=== PATIENT | female | born 2000 | race Caucasian/White ===

== ENCOUNTER 2020-06-12 00:08 | Emergency (ER) | payer OTHER ==
[2020-06-12] MEDS ORDERED: FLUCONAZOLE 100 MG TABLET PO STA (01:35)
--- NOTE | 2020-06-12 01:37 | ED Physician Documentation ---
History of Present Illness - Stated complaint Stated Complaint: FEMALE - Chief complaint Chief Complaint: General - History obtained from History obtained from: Patient - History of Present Illness Timing: Other (4 months) - Additonal information Additional information: 20-year-old female who has developed itching to the anus about 4 months ago. She has tried some Preparation H and when this did not seem to help much she went into medical and they told her to stop using that and to use some zinc oxide with some moisture that was seen there. She has not had relief with that. She is come in now for further evaluation. She indicates itching is sometimes so severe she is not able to sleep at night. Review of Systems Constitutional: denies: Fever Eyes: denies: Decreased vision Ears: denies: Ear pain Throat: denies: Sore throat Cardiac: denies: Palpitations Respiratory: denies: Cough GI: reports: Other (itching to the rectum). denies: Vomiting : denies: Dysuria, Frequency Skin: denies: Rash, Lesions PD PAST MEDICAL HISTORY - Past Medical History Past Medical History: Yes Derm: Eczema - Past Surgical History Past Surgical History: No - Present Medications Home Medications: Ambulatory Orders Medication Instructions Recorded Confirmed Albendazole [Albenza] 400 mg PO DAILY #6 tablet 06/12/20 - Allergies Allergies/Adverse Reactions: Allergies Allergy/AdvReac Type Severity Reaction Status Date / Time No Known Drug Allergies Allergy Verified 06/12/20 01:36 - Social History Does the pt smoke?: No Smoking Status: Never smoker Does the pt drink ETOH?: No Does the pt have substance abuse?: No - Immunizations Immunizations are current?: Yes - POLST Patient has POLST: No PD ED PE NORMAL - Vitals Vital signs reviewed: Yes (normal ) - General General: Alert and oriented X 3, No acute distress, Well developed/nourished - HEENT HEENT: Atraumatic, PERRL, EOMI - Respiratory Respiratory: No respiratory distress - Rectal Rectal: Other (No external or internal hemorrhoids. Normal appearing anus with normal tone. mild erythema into the gluteal fold. ) - Derm Derm: Normal color, Warm and dry, No rash - Extremities Extremities: No deformity, No edema - Neuro Neuro: Alert and oriented X 3, communication professor 2-12 intact, No motor deficit, No sensory deficit, Normal speech Eye Opening: Spontaneous Motor: Obeys Commands Verbal: Oriented GCS Score: 15 - Psych Psych: Normal mood, Normal affect Results - Vitals Vitals: Vital Signs - 24 hr 06/12/20 06/12/20 00:12 00:16 Temperature 37.4 C 37.4 C Heart Rate 89 89 Respiratory 16 16 Rate Blood Pressure 129/77 129/77 O2 Saturation 99 99 Oxygen O2 Source Room air PD MEDICAL DECISION MAKING - ED course Complexity details: considered differential, d/w patient ED course: 20-year-old female with itching to the anus has a normal-appearing anus there is maybe a little bit of erythema extending up the crack and she is treated empirically here in the emergency department with 150 mg of Diflucan I have encouraged patient to use cortisone on a regular basis for relief of the itching. In addition I have provided a prescription for albendazole and asked the patient to wait 1 week with the conservative treatment she is using now if she does not have relief of that to take the benzo. Departure - Departure Disposition: 01 Home, Self Care Clinical Impression: Pruritus ani Condition: Stable Instructions: ED Pruritus Ani Anal Itching Follow-Up: MATEO Massey [Provider Group] Prescriptions: Albendazole [Albenza] 400 mg PO DAILY #6 tablet Comments: Pruritus ani can be a significant irritation and you will always be able to get some relief with the use of [id number] hydrocortisone. This can be applied twoce daily if needed but should not be used continuously twice per day. If needed you could use this continuously 2-3 times per week. Today we have given you a dose of Diflucan which will eliminate yeast. If you have resolution of your symptoms this week this is likely been the cause. You may need this medication again at some point. In addition I have provided a prescription for albendazole which is for pinworms. My recommendation is to take this medication if you do not have resolution of your symptoms from the Diflucan. The timing of this would be may be a week from now and you will need to take this for 3 days.
[2020-06-12 01:58] VITALS: BP 125/72
== END 2020-06-12 02:07 | disposition home or self-care (01) ==
LOC: ED 00:08
DX: L29.0 Pruritus ani (principal)
CPT/HCPCS: 99282; 99284; A9270

== ENCOUNTER 2020-06-17 14:07 | Emergency (ER) | payer OTHER ==
[2020-06-17] MEDS ORDERED: FLUCONAZOLE 100 MG TABLET PO STA (14:33)
--- NOTE | 2020-06-17 14:36 | ED Physician Documentation ---
History of Present Illness - Stated complaint Stated Complaint: ITCHING - Chief complaint Chief Complaint: General - History obtained from History obtained from: Patient - Additonal information Additional information: This 20-year-old woman had trouble with itching around her anus 2 years ago that resolved with Preparation H. Her symptoms came back in January and have been slowly worsening with itching around the anus not associated with sore throat, weight loss, fevers, abnormal stools or rectal discharge. She tried preparation H again which was not helpful this time, she was seen here a few days ago and started on Diflucan, given 1 dose and she was symptom-free for 4 days but the symptoms returned yesterday. She also started albendazole yesterday. Review of Systems Constitutional: denies: Fever, Chills Eyes: reports: Reviewed and negative Ears: reports: Reviewed and negative PD PAST MEDICAL HISTORY - Past Medical History Past Medical History: Yes Derm: Eczema - Past Surgical History Past Surgical History: No - Present Medications Home Medications: Ambulatory Orders Medication Instructions Recorded Confirmed Albendazole [Albenza] 400 mg PO DAILY #6 tablet 06/12/20 06/17/20 Doxepin [SINEquan] 10 mg PO TID PRN #15 capsule 06/17/20 Nystatin [Nystop] 1 applic TOP BID #3 bottle 06/17/20 - Allergies Allergies/Adverse Reactions: Allergies Allergy/AdvReac Type Severity Reaction Status Date / Time No Known Drug Allergies Allergy Verified 06/17/20 14:16 - Social History Does the pt smoke?: No Smoking Status: Never smoker Does the pt drink ETOH?: No Does the pt have substance abuse?: No - Immunizations Immunizations are current?: Yes - POLST Patient has POLST: No PD ED PE NORMAL - Vitals Vital signs reviewed: Yes - General General: Alert and oriented X 3, No acute distress - Derm Derm: Other (There is some maceration of the infra gluteal area, especially posterior to the anus. Mild redness there. No tenderness. No mass. Exam done with Kisha BROOKE.) - Neuro Neuro: Alert and oriented X 3, Normal speech Results - Vitals Vitals: Vital Signs - 24 hr 06/17/20 14:13 Temperature 36.0 C L Heart Rate 81 Respiratory 16 Rate Blood Pressure 132/81 H O2 Saturation 98 Oxygen O2 Source Room air - Labs Labs: Laboratory Tests 12/04/20 14:35 POC Whole Bld Glucose 82 PD MEDICAL DECISION MAKING - ED course ED course: 20-year-old woman presents with intense itching around the rectum, exam is most consistent with Kristan especially since she did have response to Diflucan for a few days. She has a family history of diabetes and her blood sugar was checked here and it was 82. We will repeat the Diflucan but also start some nystatin powder. Departure - Departure Disposition: 01 Home, Self Care Clinical Impression: Infection by Kristan species Condition: Good Record reviewed to determine appropriate education?: Yes Instructions: ED Candidiasis Cutaneous Prescriptions: Nystatin [Nystop] 1 applic TOP BID #3 bottle Doxepin [SINEquan] 10 mg PO TID PRN #15 capsule PRN Reason: Itching Comments: As discussed, your physical findings today are most consistent with a yeast infection around your anus. You can continue the warm medicine but I think t reating the yeast primarily will be more effective. We are repeating the yeast pill here and I am giving you a prescription for nystatin powder which should help carry keep the area free of yeast and dry. I would also make sure you are airing the area out and not wearing tight fitting or other clothing that would keep the area excessively moist. Follow-up with your doctor as scheduled. Do not drink or drive while taking the antiitch medicine. Your blood sugar is normal at 82.
[2020-06-17 14:44] VITALS: BP 121/75
== END 2020-06-17 14:57 | disposition home or self-care (01) ==
LOC: ED 14:07
DX: B37.89 Other sites of candidiasis (principal); L29.0 Pruritus ani; Z83.3 Family history of diabetes mellitus
CPT/HCPCS: 99282; 99283; A9270

== ENCOUNTER 2020-07-23 08:43 | Emergency (ER) | payer OTHER ==
--- NOTE | 2020-07-23 09:05 | ED Physician Documentation ---
History of Present Illness - Stated complaint Stated Complaint: FEMALE - History obtained from History obtained from: Patient - History of Present Illness Timing: How many years ago (2) - Additonal information Additional information: 20-year-old female with pruritus to the anus had symptoms about 2 years ago which resolved with Preparation H and then returned in January of this year and she has been having some trouble controlling her symptoms since. She has been very uncomfortable with a lot of itching and she came in to see us here in the emergency department we gave her a single dose of Diflucan which controlled her symptoms for about 4 days and she subsequently came back was placed on a course of nystatin and doxepin and she states this seemed to help for a while and she took the 15 pills of doxepin and these helped at night with the itching. She is now out of her medications and symptoms are worse. She has been in to see a telecommunications network engineer and had colonoscopy and biopsies done. She is awaiting results of that now. Review of Systems Constitutional: denies: Fever Eyes: denies: Decreased vision Ears: denies: Ear pain Nose: denies: Congestion Throat: denies: Sore throat Cardiac: denies: Chest pain / pressure Respiratory: denies: Dyspnea, Cough GI: reports: Other (Rectal itching especially at night.). denies: Abdominal Pain, Nausea, Vomiting, Constipation, Diarrhea : denies: Dysuria, Frequency Skin: denies: Rash PD PAST MEDICAL HISTORY - Past Medical History Derm: Eczema - Past Surgical History Past Surgical History: No - Present Medications Home Medications: Ambulatory Orders Medication Instructions Recorded Confirmed Albendazole [Albenza] 400 mg PO DAILY #6 tablet 06/12/20 07/23/20 Doxepin [SINEquan] 10 mg PO TID PRN #15 capsule 06/17/20 07/23/20 Nystatin [Nystop] 1 applic TOP BID #3 bottle 06/17/20 07/23/20 Doxepin [SINEquan] 10 mg PO QPM PRN #30 capsule 07/23/20 Fluconazole [Diflucan] 100 mg PO DAILY #14 tablet 07/23/20 Nystatin [Nystop] 1 applic TOP BID #3 bottle 07/23/20 - Allergies Allergies/Adverse Reactions: Allergies Allergy/AdvReac Type Severity Reaction Status Date / Time No Known Drug Allergies Allergy Verified 07/23/20 09:09 - Social History Does the pt smoke?: No Smoking Status: Never smoker Does the pt drink ETOH?: No Does the pt have substance abuse?: No - Immunizations Immunizations are current?: Yes - POLST Patient has POLST: No PD ED PE NORMAL - Vitals Vital signs reviewed: Yes - General General: Alert and oriented X 3, No acute distress, Well developed/nourished - HEENT HEENT: Atraumatic, PERRL, EOMI - Respiratory Respiratory: No respiratory distress - Rectal Rectal: Other (Minimal inflammation of the mucosa without satellite lesions not as much erythema up the crack as previously. No obvious mass sores or external hemorrhoid. 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 ) - Derm Derm: Normal color, Warm and dry, No rash - Extremities Extremities: No deformity, No edema - Neuro Neuro: Alert and oriented X 3, airline stewardess 2-12 intact, No motor deficit, No sensory deficit, Normal speech Eye Opening: Spontaneous Motor: Obeys Commands Verbal: Oriented GCS Score: 15 - Psych Psych: Normal mood, Normal affect Results - Vitals Vitals: Vital Signs - 24 hr 07/23/20 08:53 Temperature 37.4 C Heart Rate 86 Respiratory 18 Rate Blood Pressure 153/113 H O2 Saturation 99 Oxygen O2 Source Room air PD MEDICAL DECISION MAKING - ED course Complexity details: considered differential, d/w patient ED course: 20-year-old female with pruritus ani that seems to be responding to antifungal has not been able to cure her pruritus a night. She is failed topical treatment and we will place her on a course of Diflucan for 2 weeks and in addition we will prescribe the doxepin to be used at night as needed on a longer-term basis. Departure - Departure Disposition: 01 Home, Self Care Clinical Impression: Pruritus ani Condition: Stable Instructions: ED Pruritus Ani Anal Itching Follow-Up: BARAK PAT MD [Primary Care Provider] - Prescriptions: Fluconazole [Diflucan] 100 mg PO DAILY #14 tablet Nystatin [Nystop] 1 applic TOP BID #3 bottle Doxepin [SINEquan] 10 mg PO QPM PRN #30 capsule PRN Reason: Itching Comments: Today it seems the medications you have responded to our medications that reduce yeast. We have prescribed a longer course of oral medication to take to try to eliminate the infection entirely. Symptomatic treatment with doxepin at night can always be helpful and this is a safe medication to take at this dose.
[2020-07-23 09:09] VITALS: BP 153/113
== END 2020-07-23 09:28 | disposition home or self-care (01) ==
LOC: ED 08:43
DX: L29.0 Pruritus ani (principal)
CPT/HCPCS: 99283; 99284

== ENCOUNTER 2021-05-08 16:36 | Emergency (ER) | payer OTHER ==
[2021-05-08 16:53] VITALS: BP 140/87
--- NOTE | 2021-05-08 17:01 | ED Physician Documentation ---
History of Present Illness - Stated complaint Stated Complaint: FEMALE - Chief complaint Chief Complaint: General - History obtained from History obtained from: Patient - Additonal information Additional information: Patient comes emergency department for chief complaint of possible STD exposure. She states that she had a 1 night stand with a person she did not previously know and that they did not use any protection. Patient states she has not had any symptoms and she does not know if her partner had any symptoms either before or since, but patient is worried that she may have "gotten something" from her partner. No vaginal bleeding. No vaginal discharge. No dysuria or abdominal pain. No fevers. No other complaints at this time. Review of Systems Ten Systems: 10 systems reviewed and negative Constitutional: reports: Reviewed and negative Eyes: reports: Reviewed and negative Ears: reports: Reviewed and negative Nose: reports: Reviewed and negative Throat: reports: Reviewed and negative Cardiac: reports: Reviewed and negative Respiratory: reports: Reviewed and negative GI: reports: Reviewed and negative : reports: Reviewed and negative Skin: reports: Reviewed and negative Musculoskeletal: reports: Reviewed and negative Neurologic: reports: Reviewed and negative Psychiatric: reports: Reviewed and negative Endocrine: reports: Reviewed and negative Immunocompromised: reports: Reviewed and negative PD PAST MEDICAL HISTORY - Past Medical History Derm: Eczema - Past Surgical History Past Surgical History: No - Present Medications Home Medications: Ambulatory Orders Medication Instructions Recorded Confirmed mycophenolate mofetiL 2 cap PO BID 05/08/21 05/08/21 [Mycophenolate Mofetil] - Allergies Allergies/Adverse Reactions: Allergies Allergy/AdvReac Type Severity Reaction Status Date / Time No Known Drug Allergies Allergy Verified 05/08/21 16:50 - Social History Does the pt smoke?: No Smoking Status: Never smoker Does the pt drink ETOH?: No Does the pt have substance abuse?: No - Immunizations Immunizations are current?: Yes - POLST Patient has POLST: No PD ED PE NORMAL - Vitals Vital signs reviewed: Yes - General General: Alert and oriented X 3, No acute distress, Well developed/nourished - HEENT HEENT: Atraumatic, PERRL, EOMI, Moist mucous membranes - Neck Neck: Supple, no meningeal sign - Cardiac Cardiac: RRR, No murmur - Respiratory Respiratory: No respiratory distress, Clear bilaterally - Abdomen Abdomen: Soft, Non tender, Non distended - Female Female : Orchestra Director present, Other (Normal female genitalia. Moderate amount of white nonmalodorous discharge. Cervical appearance is normal. IUD string can be seen protruding from os. No lesions. No cervical motion tenderness.) - Derm Derm: Normal color, Warm and dry, No rash - Extremities Extremities: No deformity, No edema - Neuro Neuro: Alert and oriented X 3, sales planning analyst 2-12 intact, Normal speech - Psych Psych: Normal mood, Normal affect Results - Vitals Vitals: Vital Signs - 24 hr 05/08/21 16:47 Temperature 37.2 C Heart Rate 71 Respiratory 16 Rate Blood Pressure 140/87 H O2 Saturation 98 Oxygen O2 Source Room air PD MEDICAL DECISION MAKING - ED course Complexity details: considered differential, d/w patient ED course: Wet mount and GC chlamydia swabs were collected at the patient's request, despite my conversation with her, and stating that she is unlikely to have a positive test at this time, even if she did contract any sort of sexually transmitted infection from this encounter. The patient wanted to be tested anyway, as this was done. She has opted not to be prophylactically treated, however. She has an IUD in place, the string which was visualized on exam, and so she is not worried about being . We have discussed the signs and symptoms of various sexually transmitted infections. We have also discussed that should she have any symptoms, she should refrain from sexual activity until she is treated. Departure - Departure Disposition: 01 Home, Self Care Clinical Impression: At risk for sexually transmitted disease due to unprotected sex Condition: Stable Instructions: HIV AIDS Teen, HPV Genital Warts Teen, ED Chlamydia Female, ED Gonorrhea Female, ED Chlamydia GC Poss Culture Pend Comments: At your request, we have tested you for sexually transmitted infections that can be treated with an antibiotic attic. Unfortunately, given the recent nature of your sexual exposure, it is unlikely that any of these test will be positive, even if you did contract an infection from your partner. You have opted not to have preventative treatment today. As such, it is possible that you could give an infection that you have picked up, but not develop symptoms for, to somebody else. It is important to engage in only protected sex if you are not with a committed partner. Please seek medical attention if you begin to have symptoms such as are detailed in the instructions below.
[2021-05-08 21:00] LABS: CHLAMYDIA TRACHOMATIS DNA NEGATIVE (NEGATIVE); NEISSERIA GONORRHOEAE DNA NEGATIVE (NEGATIVE); TRICHOMONAS VAGINALIS DNA NEGATIVE (NEGATIVE)
== END 2021-05-08 17:29 | disposition home or self-care (01) ==
LOC: ED 16:36
DX: Z20.2 Contact with and (suspected) exposure to infections with a predominantly sexual mode of transmission (principal)
CPT/HCPCS: 87210; 87491; 87591; 87661; 99281; 99283